=== PATIENT | female | born 1945 | race Caucasian/White ===

== ENCOUNTER 2024-09-05 06:10 | Day surgery (SDC) | payer MEDICARE ==
[2024-09-03 15:46] VITALS: BMI 30.6
[2024-09-05 13:06] VITALS: BP 115/65; PULSE 65; RESP 18; TEMP 97
== END 2024-09-05 11:55 | disposition home or self-care (01) ==
LOC: JASU-ENDO 06:10
PROVIDERS: ATTEND Internal Medicine Gastroenterology
PROC: 0DB98ZX Excision of Duodenum, Via Natural or Artificial Opening Endoscopic, Diagnostic (ICD-10-PCS; 2024-09-05)
PROC: 0DB78ZX Excision of Stomach, Pylorus, Via Natural or Artificial Opening Endoscopic, Diagnostic (ICD-10-PCS; 2024-09-05)
PROC: 0DB68ZX Excision of Stomach, Via Natural or Artificial Opening Endoscopic, Diagnostic (ICD-10-PCS; 2024-09-05)
PROC: 0DJD8ZZ Inspection of Lower Intestinal Tract, Via Natural or Artificial Opening Endoscopic (ICD-10-PCS; principal; 2024-09-05 10:00)
DX: Z12.11 Encounter for screening for malignant neoplasm of colon (principal); K29.50 Unspecified chronic gastritis without bleeding; K44.9 Diaphragmatic hernia without obstruction or gangrene; K64.8 Other hemorrhoids
CPT/HCPCS: 88305-TC; 88342-TC